=== PATIENT | male | born 1975 | race Caucasian/White ===

== ENCOUNTER 2021-12-03 11:17 | Emergency (ER) | payer OTHER, SELFPAY ==
--- NOTE | ~2021-12-03 | XR_ITS ---
XR chest 2V DATE: 12/03/2021 12:23 INDICATION: Cough TECHNIQUE: PA and lateral views COMPARISON: None FINDINGS: Bilateral hyperinflation. No pulmonary infiltrate or consolidation, pleural effusion or pul monary vascular congestion or pneumothorax. Mild bilateral apical capping. Normal heart size. No hilar or mediastinal enlargement. IMPRESSION: Bilateral hyperinflation; no active cardiopulmonary disease Reviewed, dictated and finalized at location A.
[2021-12-03 11:26] VITALS: BP 115/72; PULSE 94; RESP 18; TEMP 37.1; O2SAT 100
[2021-12-03] MEDS: SODIUM CHLORIDE 0.9% IV 1,000 ML 999 ML IV CONT (12:20)
[2021-12-03] MEDS: KETOROLAC 15 MG/ML VIAL (*BKC) IV PUSH (12:21)
--- NOTE | 2021-12-03 12:25 | ED.FEVER ---
HPI - Fever General Chief Complaint: Fever Stated Complaint: fever, aches, no energy, Time Seen by Provider: 12/03/21 11:54 Source: patient History of Present Illness HPI Narrative: Patient presents with fever aches and generalized weakness. Patient ports not been feeling well for the past few days. Feels like his symptoms are getting worse. Attempting [id number] anti-inflammatories with intermittent relief of his symptoms. He is reporting fevers particular at night associated with a nonproductive cough denies any nausea or vomiting. Reports diffuse joint pain most noted in his neck. Also reporting a headache denies any focal numbness or tingling denies any changes in vision. He reports he is concerned because he lives in [place] and is visiting family here has been spending a lot of time in the [place] and his son was recently diagnosed with Lyme disease. Reports he is also found multiple ticks on him after he works out in the [employer] but is not noted any rashes. Related Data Allergies Allergy/AdvReac Type Severity Reaction Status Date / Time No Known Allergies Allergy Verified 12/03/21 11:50 Review of Systems Review of Systems: CONSTITUTIONAL: reports subjective fevers and night sweats EYES: Denies visual changes, redness, or discharge. ENT: Denies rhinorrhea, congestion, sore throat, or otalgia. CARDIOVASCULAR: Denies chest pain, palpitations, or edema. RESPIRATORY: Reports cough and shortness of breath GASTROINTESTINAL: Denies abdominal pain, nausea, vomiting, or diarrhea. GENITOURINARY: Denies dysuria or hematuria. SKIN: Denies rash or itching. MUSCULOSKELETAL: Reports diffuse myalgias and joint pain NEUROLOGIC: Denies numbness, dizziness, or focal weakness. PSYCHIATRIC: Denies anxiety or depression. All systems reviewed & are unremarkable except as noted in HPI and below PMFSH Past Medical History Medical History (Updated 12/03/21 @ 13:34 by Edward Rodgers MD) Autoimmune disorder Social History Social History (Updated 12/03/21 @ 12:28 by Edward Rodgers MD) Living arrangements: with family Exam Narrative: GENERAL: Well-appearing, well-nourished, and in no acute distress. HEAD: Normocephalic, atraumatic. EYES: PERRLA and EOMI. ENT: Nares clear, no rhinorrhea or epistaxis. Mucous membranes moist. NECK: Supple. No masses. No JVD CHEST: Clear to auscultation. No respiratory distress. No wheezes rales or rhonchi HEART: Regular rate and rhythm. No murmur heard. Normal peripheral pulses. ABDOMEN: Soft, nontender, nondistended, normal active bowel sounds. EXTREMITIES: Normal range of motion. No edema. SKIN: Warm, dry, no rash. NEURO: No focal deficits. Alert and oriented x3. PSYCH: Normal mood and affect. Course Reevaluation(s) Reevaluation #1: Patient resting comfortably denies any significant improvement in symptoms results reviewed with patient. Given his exposure to 6 and another family member diagnosed with Lyme disease will empirically treat patient is comfortable with empiric treatment. His Lyme titers are pending. Date: 12/03/21 Time: 13:31 Vital Signs Vital signs: Vital Signs Temperature 37.1 C 12/03/21 11:26 Pulse Rate 94 12/03/21 11:26 Respiratory Rate 18 12/03/21 11:26 Blood Pressure 115/72 12/03/21 11:26 Pulse Oximetry 100 12/03/21 11:26 Oxygen Delivery Room Air 12/03/21 11:26 Temperature 37.1 C 12/03/21 11:26 Pulse Rate 94 12/03/21 11:26 Respiratory Rate 18 12/03/21 11:26 Blood Pressure 115/72 12/03/21 11:26 Pulse Oximetry 100 12/03/21 11:26 Oxygen Delivery Room Air 12/03/21 11:26 MDM - Fever MDM Narrative Medical decision making narrative: H&P as above, vss, pt looks clinically well, exam reassuring, labs clinically unremarkable, img without acute process, additional labs/img considered, symptomatic relief available as needed, on reevaluation pt continues to looks clinically well. Symptoms may represent viral process vers
[2021-12-03 12:42] LABS: Basophils Percent Auto 0.1 % (0.2-1.2); Hematocrit 39.3 % (42.0-52.0); Hemoglobin 14.3 g/dL (14.0-18.0); Immature Granulocyte Absolute 0.03 K/mm3 (0.00-0.031); Immature Granulocyte Percent A 0.4 % (0-0.5); Lymphocytes Absolute Auto 0.41 K/mm3 (0.9-3.2); Lymphocytes Percent Auto 5.8 % (18.3-44.2); Mean Corpuscular HGB Conc 36.4 g/dl (32-36); Mean Corpuscular Hemoglobin 31.5 pg (26-34); Mean Corpuscular Volume 86.6 fl (80-100); Mean Platelet Volume 9.1 fl (7.4-10.4); Monocytes Absolute Auto 0.6 K/mm3 (0.1-0.6); Monocytes Percent Auto 7.7 % (2.6-8.5); Neutrophils Absolute Auto 6.1 K/mm3 (1.3-6.7); Platelet Count Result 179 k/mm3 (150-375); Red Blood Count 4.54 M/mm3 (4.6-6.20); Red Cell Distribution Width 11.9 % (11.5-14.5); White Blood Count 7.1 K/mm3 (4.5-10.0)
[2021-12-03 12:54] LABS: Alanine Aminotransferase 46 U/L (6-50); Albumin Level 4.5 g/dL (3.5-5.1); Alkaline Phosphatase 160 U/L (38-126); Anion Gap 8 mmol/L (8-16); Aspartate Amino Transferase 45 U/L (17-59); Bilirubin,Total 1.7 mg/dL (0.2-1.3); Blood Urea Nitrogen 9 mg/dL (9-20); Calcium 8.8 mg/dL (8.4-10.2); Carbon Dioxide 29 mmol/L (22-30); Chloride 92 mmol/L (98-107); Estimated CRCL calculation 91 ml/min; Estimated Glomerular Filt Rate > 60; Glucose 107 mg/dL (65-110); Potassium 4.3 mmol/L (3.4-5.0); Sodium 129 mmol/L (137-145)
[2021-12-03 13:21] LABS: SARS-CoV-2 RNA PCR Negative
[2021-12-09 15:19] LABS: Lyme Disease Ab (IgM), Blot Negative (Negative); Lyme Disease Ab(IgG), Blot Negative (Negative)
== END 2021-12-03 13:45 | disposition home or self-care (01) ==
PROVIDERS: Emergency Provider Emergency Medicine
DX: R53.81 Other malaise (principal); R50.9 Fever, unspecified; R05.9 Cough, unspecified; Z20.822 Contact with and (suspected) exposure to COVID-19
CPT/HCPCS: 36415; 71046; 80053; 85025; 86617; 96361; 96374; 99284; C9803; J1885; J7030; U0003; U0005